=== PATIENT | female | born 1950 | race Caucasian/White ===

== ENCOUNTER 2017-08-13 15:43 | Outpatient (CLI) ==
[2015-09-28 20:43] VITALS: BMI 35.8
[2017-08-13 16:11] LABS: CREATININE 0.74 mg/dL (0.60-1.30)
== END 2017-08-13 15:44 | disposition home or self-care (01) ==
LOC: LAB 15:43
PROVIDERS: ATTEND Internal Medicine
DX: Z01.818 Encounter for other preprocedural examination (principal)
CPT/HCPCS: 36415; 82565

== ENCOUNTER 2017-08-14 06:54 | Outpatient (CLI) ==
[2015-09-28 20:43] VITALS: BMI 35.8
--- NOTE | 2017-08-14 08:41 | DI ---
EXAM: CHEST FRONTAL AND LATERAL VIEWS HISTORY: Dizziness. COMPARISON: 05/18/2009 FINDINGS: Heart size remains within normal limits. A large hiatal hernia previously seen is not gema jaida identified on the current study. Lungs are free of infiltrate. No vascular congestion or pleur al fluid. IMPRESSION: No acute cardiopulmonary process identified.
--- NOTE | 2017-08-14 09:22 | US ---
EXAM: ULTRASOUND CAROTID DUPLEX, BILATERAL HISTORY: Dizziness FINDINGS: Lopez-scale ultrasound, color Doppler and spectral analysis was performed. Velocities are in meters per second. By lopez scale and color Doppler imaging, there appears to be only minimal intimal thickening and scat tered atherosclerotic plaque in both carotid systems, including the bulbs and internal carotid arteri es. RIGHT: External carotid artery peak systolic velocity: 0.4 Common carotid artery peak systolic velocity/end diastolic velocity: 0.7/0.3 Internal carotid artery peak systolic velocity: 0.7 ICA/CCA peak systolic velocity ratio: 1.0 ICA end diastolic velocity: 0.2 LEFT: External carotid artery peak systolic velocity: 0.4 Common carotid artery peak systolic velocity/end diastolic velocity: 0.5/0.2 Internal carotid artery peak systolic velocity: 0.6 ICA/CCA peak systolic velocity ratio: 1.1 ICA end diastolic velocity: 0.2 The right and left vertebral arteries were antegrade. IMPRESSION: 1. By lopez scale and color Doppler imaging, there appears to be only minimal intimal thickening and scattered atherosclerotic plaque in both carotid systems, including the bulbs and internal carotid ar teries. 2. Internal carotid artery peak systolic velocities and ICA/CCA peak systolic velocity ratios indica te no hemodynamically significant stenosis bilaterally. 3. Both vertebral arteries were antegrade.
--- NOTE | 2017-08-14 10:17 | MRI ---
EXAM: MRI brain without and with IV contrast. DATE: 08/14/2017. HISTORY: Dizziness, ataxia. TECHNIQUE: Sagittal T1W pre and postcontrast, axial T2W, axial FLAIR, axial T1W pre and postcontrast , axial DWI, coronal T1W postcontrast, and coronal T2W GRE sequences of the brain were obtained using 1.2 Sandra magnet. CONTRAST: Omniscan - 17 ml IV. COMPARISON: MRI brain 19 February 2012. FINDINGS: The ventricles and cisterns are normal in size configuration. CSF spaces overlying the [place] aspect of the frontal and parietal lobes are mildly prominent, without loculated areas. Many fro ntal parietal lobe sulci are slightly prominent due to involutional change. No midline shift or cruzito iation is apparent. No acute infarct, hemorrhage or enhancing neoplasm is identified. No abnormal c ontrast enhancement is identified in the brain, meninges or dura. Minimal T2W/FLAIR hyperintensity i s observed in the white matter abutting each lateral ventricle. Small number 2-5 mm, T2W/FLAIR brigh t, non-enhancing foci are scattered within the simental radiata, centrum semiovale and subcortical whit e matter bilaterally. The lujan - white matter differentiation is normal. No migration or diverticul ation abnormality is identified. The amygdala, hippocampus, and parahippocampal gyri are symmetric a nd normal bilaterally. The 7th/8th cranial nerve complexes, cerebellopontine angles, brainstem, and visible cervical spinal cord are normal. There is 1-2 mm left cerebellar tonsillar ectopia. The pit uitary gland is very small in size and flattened against the floor of the sella, with CSF filling the majority of the pituitary fossa. Corpus callosum is normal in size and configuration. Flow voids a re present in the major intracranial arteries and in the dural venous sinuses. No aneurysm, AVM or d ural venous sinus thrombosis is apparent. Change in the lens of each eye suggests prior cataract jerry bossman. Minimal fluid signal within each optic nerve sheath may be normal variation since there is no definitive scleral flattening. No other orbit abnormality is identified. The mastoid air cells are unremarkable. There is no acute sinusitis. Rightward nasoseptal deviation is observed near the leve l of the middle and superior turbinates. No neck mass or lymphadenopathy is detected. No calvarial neoplasm or acute fracture is evident. Minor posterior disc bulge at C3-4 does not cause cord mathieu cristi or central stenosis. IMPRESSIONS: 1. No acute infarct, hemorrhage, enhancing neoplasm or hydrocephalus. 2. Moderate/mild supratentorial small vessel disease. 3. Mild cerebral atrophy (primarily frontoparietal). 4. 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 5. Minimal low-lying left cerebellar tonsil. No Chiari 1 malformation.
== END 2017-08-14 06:55 | disposition home or self-care (01) ==
LOC: RAD 06:54
PROVIDERS: ATTEND Internal Medicine
DX: R42 Dizziness and giddiness (principal); R27.0 Ataxia, unspecified

== ENCOUNTER → 2017-08-18 | Outpatient (POV) ==
[2015-09-28 20:43] VITALS: BMI 35.8
== END ==
LOC: OUTPT 00:01
PROVIDERS: ATTEND Otolaryngology
DX: R42 Dizziness and giddiness (principal)
CPT/HCPCS: 92557; 92567